=== PATIENT | female | born 2000 | race Caucasian/White ===

== ENCOUNTER → 2023-05-14 | Outpatient (CLI) | payer BC ==
--- NOTE | 2023-05-14 14:12 | CT ---
EXAMINATION TYPE: CT soft tissue neck w con DATE OF EXAM: 05/14/2023 HISTORY: SWELLING, MASS AND LUMP, right side of neck COMPARISON: NONE CT DLP: 404.2 mGycm. Automated Exposure Control for Dose Reduction was Utilized. TECHNIQUE: CT scan of the neck is performed with IV Contrast, patient injected with 100 mL of Isovue 300, axial images are obtained, coronal and sagittal reformatted images are reviewed. FINDINGS: Airway: Suggestion of patchy groundglass opacity superior right lower lobe lung mass axial images. Co rrelate clinically. The epiglottis not well visualized on sagittal images. Remainder of the airways patent. No obvious ma ss at this level. Parotid/submandibular glands: No gross abnormality seen. Carotid/Vascular Structures: No significant abnormality. Osseous Structures: No significant abnormality. Other: Metallic BB at the level of palpable abnormality right neck axial image 52 at the superior lev el of the thyroid gland. No concerning solid or cystic mass or fluid collection is clearly seen at th is level. Adjacent sternocleidomastoid muscle is unremarkable and symmetric to the opposite left mitesh e. Normal appearing right internal jugular vein is seen. There are few prominent but subcentimeter ly mph nodes noted bilaterally. Parapharyngeal fat spaces are maintained bilaterally. IMPRESSION: No concerning mass or adenopathy clearly seen with particular attention to the right nec k at area of clinical concern.
== END | disposition home or self-care (01) ==
LOC: RADCTMAIN 13:12
PROVIDERS: ATTEND Otolaryngology
DX: R22.1 Localized swelling, mass and lump, neck (principal)
CPT/HCPCS: 70491; Q9967